=== PATIENT | female | born 2000 | race African-American/Black ===

== ENCOUNTER 2024-03-09 21:14 | Emergency (ER) | payer BC, OTHER ==
--- OUTSIDE RECORDS SUMMARY | 2024-03-09 21:18 | XMS REPORT | Continuity of Care Document ---
Author Name Unknown Address [address] [place] [address] [facility] thconnect Address [address] [place] [address] Care Team Providers Care Inspector Poising Name Role Phone JENIFER HANSON Primary Care Physician Unavailab caterina [email or web address]_S Attending Clinician UnavailROSMERY Wolfe Attending Clinician Unavailable Joe Dozier DO Attending Clinician [phone] Joanna Hickman MD Attending Clinician [phone] JOANNA HICKMAN Attending Clinician Unavailable Rosmery Stratton PA-C Attending Clinician [phone] DR DOMONIQUE BROOKS Attending Clinician Unavailable [email or web address]_S Admitting Clinician DR DOMONIQUE Brooks Admitting Clinician Unavailable Payers Payer Name Policy Type Policy Number Effective Date Expirati on Date Source [facility] [id number] 2018 00:00:00 Problems Condition Name Condition Details Condition Category Status Onset Date Resolution Date Last Treatment Date Treating Clinician Comments Source Nexplanon in place Nexplanon in place Disease Active 2019-02 00:00: 00 [facility] Morbid obesity with body mass index of 40.0-49.9 Morbid obesity with body mass index of 40.0-49.9 Disease Active 2019-02 00:00: 00 [facility] Allergies, Adverse Reactions, Alerts Allergy Name Allergy Type Status Severity Reaction(s) Onset Date Inactive Date Treating Clinician Comments Source NO KNOWN ALLERGIE S Drug Class Active [facility] Social History Social Habit Start Date Stop Date Quantity Comments Source Exposure to SARS-CoV-2 (event) Not sure [facility] Tobacco use and exposure 2019-12-12 00:00:00 2019-12-12 00:00:00 Never used [facility] Alcohol intake 2019-12-12 00:00:00 2019-12-12 00:00:00 Ex-drinker (finding) [facility] Sex Assigned At 2000 00:00:00 2000 00:00:00 [facility] Smoking Status Start Date Stop Date Source Never smoker [facility] Medications Ordered Medication Name Filled Medication Name Start Date Stop Date Current Medication? Ordering Clinician Indication Dosage Frequency Signature (SIG) Comments Components Source etonogestre L (NEXPLANON) implant 68 mg 2019-02 21:30: 00 12-11 20:30 :00 No 68mg [facility] No known medications No Un kennedy [facility] No known medications No Un kennedy [facility] Vital Signs Vital Name Observation Time Observation Value Comments S ource Systolic blood pressure 2019-12-12 19:50:00 122 mm[Hg] [facility] Diastolic blood pressure 2019-12-12 19:50:00 84 mm[Hg] [facility] Heart rate 2019-12-12 19:50:00 84 /min Unive [facility] Body temperature 2019-12-12 19:50:00 36.89 Rupa [facility] Respiratory rate 2019-12-12 19:50:00 18 /min [facility] Body height 2019-12-12 19:50:00 172.7 cm [facility] Body weight 2019-12-12 19:50:00 141.976 kg [facility] BMI 2019-12-12 19:50:00 47.59 kg/m2 [facility] Systolic blood pressure 2019-11-14 19:21:00 110 mm[Hg] [facility] Diastolic blood pressure 2019-11-14 19:21:00 71 mm[Hg] [facility] Heart rate 2019-11-14 19:21:00 87 /min Unive [facility] Body temperature 2019-11-14 19:21:00 37.28 Rupa [facility] Respiratory rate 2019-11-14 19:21:00 18 /min [facility] Body height 2019-11-14 19:21:00 172.7 cm [facility] Body weight 2019-11-14 19:21:00 139.436 kg [facility] BMI 2019-11-14 19:21:00 46.74 kg/m2 [facility] Procedures Procedure Date / Time Performed Performing Clinicia n Source POCT TEST 2019-12-12 00:00:00 Joanna Hickman [facility] Encounters Start Date/Time End Date/Time Encounter Type Admission Type Attending [facility] Facility Care Department Encounter ID Source 2022-12-04 00:00:00 2022-12-04 00:00:00 Outpatient [email or web address]_Ka diyala_S [facility] [id number] [facility] 2020-12-17 14:00:00 2020-12-17 14:00:00 Outpatient R ROSMERY STRATTON [facility] [id number] [facility] 2020-04-28 00:00:00 2020-04-28 00:00:00 Patient Outreach Joe Dozier [facility] [id number] [facility] 2019-12-12 13:29:44 2019-12-12 14:22:01 Office Visit Joanna Hickman [facility] [id number] [facility] 2019-12-12 13:30:00 2019-12-12 13:30:00 Outpatient R JOANNA HICKMAN [facility] [id number] [facility] 2019-11-19 11:15:00 2019-11-19 11:15:00 Outpatient R JOANNA HICKMAN [facility] [id number] [facility] 2019-11-14 13:58:19 2019-11-14 14:50:14 Office Visit Rosmery Stratton [facility] [id number] [facility] 2019-11-14 14:00:00 2019-11-14 14:00:00 Outpatient ROSMERY SEQUEIRA [facility] [id number] [facility] 2017-11-03 05:45:00 2017-11-03 07:55:00 Outpatient DOMONIQUE CHIANG [facility] [id number] [facility] Results Test Description Test Time Test Comments Results Result Co mments [id number]00* Test Item Value Reference Range Interpretation Comme nts POCT PREG (test code = 1605) Negative On board controls acceptable with C Line (test code = 3574) Yes POCT PREG LOT # (test code = 3575) POCT PREG TEST DATE ( test code = 3576) [facility]-11-03 07:09:00* Test Item Value Reference Range Interpretation Comme nts PREG UR (test code = PGU) NEGATIVE NEGATIVE
[2024-03-09] MEDS ORDERED: IPRATROPIUM BROM 0.5MG/2.5ML ONE (21:32)
[2024-03-09] MEDS ORDERED: ALBUTEROL 2.5 MG/3 ML NEB SOL ONE (21:32)
[2024-03-09] MEDS ORDERED: LORazepam 2 MG/ML VIAL ONE (21:46)
[2024-03-09] MEDS ORDERED: METHYLPREDNISOLONE 125 MG INJ ONE (21:46)
[2024-03-09 22:16] LABS: PT Prothrombin Time 12.5 SECONDS (9.4-12.5); PTT, Activated Partial Thromb 31.6 SECONDS (24.3-36.9); Protime INR 1.19
[2024-03-09 22:23] LABS: ALT/SGPT 37 U/L (13-56); AST/SGOT 21 U/L (15-37); Albumin 3.3 g/dL (3.4-5.0); Albumin/Globulin Ratio 0.7 (1.1-1.8); Alkaline Phosphatase 84 U/L (45-117); Anion Gap 11.8 mEq/L (5.0-15.0); BUN Blood Urea Nitrogen 9 mg/dL (7-18); Bicarbonate 21 mEq/L (21-32); Bilirubin Direct 0.2 mg/dL (0-0.2); Bilirubin Indirect, Calculated 0.7 mg/dL (0.2-0.8); Bilirubin Total 0.9 mg/dL (0.2-1.0); Creatine Phosphokinase 224 U/L (26-192); Globulin 4.6 g/dL (2.3-3.5); Glomerular Filtration Rate 87 ml/min (=/>90); Glucose Level 97 mg/dL (74-106); Lipase 52 U/L (13-75); Magnesium 2.2 mg/dL (1.6-2.4); NT PRO-BNP 18 pg/mL (<125); Potassium 3.8 mEq/L (3.5-5.1); Protein, Total 7.9 g/dL (6.4-8.2); Sodium Level 138 mEq/L (136-145)
--- NOTE | 2024-03-09 22:23 | RAD REPORT ---
EXAMINATION: ONE VIEW CHEST XR CLINICAL INDICATION: Female, 23 years old.,CONGESTION TECHNIQUE: Frontal chest projection is submitted. Examination is limited by patient positioning and t echnique. COMPARISON: No prior exam. FINDINGS: The lungs are well inflated and clear. No pneumothorax or sizable effusion. The heart is normal in s ize. Mediastinal contours are unremarkable. IMPRESSION: No acute intrathoracic abnormalities.
[2024-03-09 22:26] LABS: Absolute Eosinophils 0.4 K/uL (0-0.5); Absolute Lymphocytes (CBC) 2.3 K/uL (0.7-4.9); Absolute Monocytes 0.4 K/uL (0.1-1.3); Absolute Neutrophil 4.6 K/uL (1.8-8.0); Basophils % 0.4 % (0-1.3); Eosinophils % 5.4 % (0-4.4); Hematocrit 44.8 % (36.0-45.0); Hemoglobin 15.5 g/dL (12.0-15.0); Lymphocytes % 29.3 % (15.3-44.8); MCH 30.8 pg (27.0-35.0); MCHC 34.5 g/dL (32.0-36.0); MCV 89.4 fL (80-100); MPV 9.2 fL (7.6-11.3); Monocytes % 5.6 % (3.3-12.3); Neutrophils % 59.3 % (41.7-73.7); Platelets 282 thou/uL (152-406); RBC Red Blood Cell Count 5.01 M/uL (3.86-4.86); Red Cell Distribution Width 14.2 % (12.1-15.2)
[2024-03-09 22:39] LABS: Troponin High Sensitivity < 3.0 pg/mL (<58.9)
[2024-03-09 23:01] LABS: SARS-CoV-2 Antigen CONTROL BLUE LINE VIS/BG OK; SARS-CoV-2 Antigen Rapid Res Negative (Negative)
--- NOTE | 2024-03-09 23:18 | ER ---
Nurse's Notes [facility] Name: Brent Negro Age: 23 yrs Sex: Female : 2000 Arrival Date: 03/09/2024 Time: 21:14 Bed 4 Private MD: Diagnosis: Acute bronchitis, unspecified Presentation: 03/09 21:14 Chief complaint: Patient states: CHEST PAIN, SHORTNESS OF BREATH, COUGH, AND DIZZINESS. ha1 21:14 Coronavirus screen: Vaccine status: Patient reports receiving the 2nd dose of the covid ha1 vaccine. Ebola Screen: No symptoms or risks identified at this time. Initial Sepsis Screen: Does the patient meet any 2 criteria? No. Patient's initial sepsis screen is negative. Does the patient have a suspected source of infection? No. Patient's initial sepsis screen is negative. Risk Assessment: Do you want to hurt yourself or someone else? Patient reports no desire to harm self or others. Onset of symptoms was March 09, 2024. 21:14 Method Of Arrival: Wheelchair ha1 21:14 Acuity: NADINE 2 ha1 Triage Assessment: 21:15 General: Appears uncomfortable, Behavior is calm, cooperative. Pain: Complains of pain ha1 in chest Pain currently is 7 out of 10 on a pain scale. Quality of pain is described as pressure. Neuro: Level of Consciousness is awake, alert, obeys commands, Oriented to person, place, time, situation. Cardiovascular: Capillary refill < 3 seconds Patient's skin is warm and dry. Respiratory: Reports shortness of breath at rest Onset: The symptoms/episode began/occurred gradually, the patient has moderate shortness of breath. Respiratory: Reports cough that is productive, persistent. GI: Abdomen is round non-distended, obese. TANNER ROTARY DRUM CONTINUOUS PROCESS: 23:08 LMP N/A - control method, Not bm8 Historical: - Allergies: 21:15 No Known Allergies; ha1 - PMHx: 21:15 None; ha1 - Immunization history:: Adult Immunizations up to date. - Infectious Disease History:: Denies. - Social history:: Smoking status: . Screenin:21 [facility] ED Fall Risk Assessment (Adult) History of falling in the last 3 months, bm8 including since admission No falls in past 3 months (0 pts) Confusion or Disorientation No (0 pts) Intoxicated or Sedated No (0 pts) Impaired Gait No (0 pts) Mobility Assist Device Used No (0 pt) Altered Elimination No (0 pt) Score/Fall Risk Level 0 - 2 = Low Risk Oriented to surroundings, Maintained a safe environment, Educated pt \T\ family on fall prevention, incl call for assistance when getting out of bed, Assessed \T\ reinforced patient's understanding of fall precautions, Hourly rounding (assess needs \T\ fall precautionary measures) done, Used ambulatory aids as needed (educated on \T\ assisted with), Used gait belt as appropriate. Abuse screen: Denies threats or abuse. Nutritional screening: No deficits noted. Tuberculosis screening: No symptoms or risk factors identified. Assessment: 22:21 Reassessment: Patient appears in no apparent distress at this time. Patient and/or bm8 family updated on plan of care and expected duration. Pain level reassessed. Patient is alert, oriented x 3, equal unlabored respirations, skin warm/dry/pink. Patient states feeling better. Patient states symptoms have improved. General: Appears in no apparent distress. comfortable, Behavior is calm, cooperative, appropriate for age. Pain: Complains of pain in chest. Neuro: No deficits noted. Level of Consciousness is awake, alert, obeys commands, Oriented to person, place, time, situation, Appropriate for age. Cardiovascular: Reports chest pain, Heart tones S1 S2 present Rhythm is sinus tachycardia. Respiratory: Reports shortness of breath cough that is productive, pain with cough Airway is patent Trachea midline Respiratory effort is even, unlabored, Respiratory pattern is regular, symmetrical, Breath sounds are coarse bilaterally. GI: No signs and/or symptoms were reported involving the gastrointestinal system. : No signs and/or symptoms were reported regarding the genitourinary system. EENT: No signs and/or symptoms were reported regarding the EENT system. Derm: No signs and/or symptoms reported regarding the dermatologic system. Musculoskeletal: No signs and/or symptoms reported regarding the musculoskeletal system. 23:25 Reassessment: Patient appears in no apparent distress at this time. Patient and/or bm8 family updated on plan of care and expected duration. Pain level reassessed. Patient is alert, oriented x 3, equal unlabored respirations, skin warm/dry/pink. Patient denies pain at this time. Patient states feeling better. Patient states symptoms have improved. 23:25 Respiratory: Airway is patent Trachea midline Respiratory effort is even, unlabored, bm8 Respiratory pattern is regular, symmetrical, Breath sounds are diminished bilaterally. Vital Signs: 21:14 BP 144 / 90; Pulse 133; Resp 20 S; Temp 98.7(O); Pulse Ox 95% on R/A; Weight 165 kg; ha1 Height 5 ft. 9 in. ; Pain 7/10; 22:21 BP 132 / 100; Pulse 137; Resp 20; Temp 98.7; Pulse Ox 90% ; Pain 4/10; bm8 23:25 BP 118 / 76; Pulse 110; Resp 19; Temp 98.7; Pulse Ox 96% ; Pain 0/10; bm8 21:14 Body Mass Index 53.72 (165.00 kg, 175.26 cm) ha1 21:14 Pain Scale: Adult ha1 22:21 Pain Scale: Adult bm8 23:25 Pain Scale: Adult bm8 Lynne Coma Score: 22:21 Eye Response: spontaneous(4). Motor Response: obeys commands(6). Verbal Response: bm8 oriented(5). Total: 15. 23:25 Eye Response: spontaneous(4). Motor Response: obeys commands(6). Verbal Response: bm8 oriented(5). Total: 15. ED Course: 21:16 Patient arrived in ED. gm2 21:19 Mekhi Espinosa FNP-C [facility]. dr5 21:19 Celestino Sullivan MD is Attending Physician. dr5 21:30 Triage completed. ha1 21:35 Initial lab(s) drawn, by nc, sent to lab. First set of blood cultures drawn by nc, EKG bm8 done, by ED staff, reviewed by Mekhi CHRISTINE COVID swab sent to lab. Flu and/or RSV swab sent to lab. X-ray(s) taken. sputum culture. Inserted saline lock: 20 gauge in right forearm, using aseptic technique. Blood collected. Flushed with 10 mL NS. Oxygen administration via nasal cannula \T\ 2L/min Response to oxygen therapy: symptoms improved. 21:44 Sunil Doss, RN is Primary Nurse. bm8 21:50 Second set of blood cultures drawn by me. bm8 22:19 XRAY CXR (1 view) In Process Unspecified. EDMS 22:21 Patient has correct armband on for positive identification. Bed in low position. Call bm8 light in reach. Side rails up X2. Adult w/ patient. Client placed on continuous cardiac and pulse oximetry monitoring. NIBP monitoring applied. monitor car operator on. Pulse ox on. NIBP on. Door closed. Noise minimized. Warm blanket given. Pillow given. Verbal reassurance given. Head of bed elevated. 22:21 No provider procedures requiring assistance completed. bm8 23:25 Provided Education on: POST ER CARE. bm8 23:25 IV discontinued, intact, bleeding controlled, No redness/swelling at site. Pressure bm8 dressing applied. 23:27 Arm band placed on right wrist. bm8 Administered Medications: 21:53 Drug: DuoNeb Nebulize (3:1) (2.5 mg - 0.5 mg) 6 ml Nebulizer once Route: Nebulizer; dd2 22:26 Follow up: Response: No adverse reaction bm8 21:56 Drug: MethylPrednisoLONE IVP 125 mg IVP once Route: IVP; Site: right forearm; bm8 22:26 Follow up: Response: No adverse reaction bm8 21:56 Drug: Ativan IVP 0.5 mg IVP once Route: IVP; Site: right forearm; bm8 22:26 Follow up: Response: No adverse reaction bm8 Medication: 22:21 VIS not applicable for this client. bm8 Outcome: 23:18 Discharge ordered by . dr5 23:25 Discharged to home ambulatory, with family, bm8 23:25 Condition: stable 23:25 Discharge instructions given to patient, family, Instructed on discharge instructions, follow up and referral plans. no drinking with medication, no driving heavy equipment, medication usage, safety practices, Demonstrated understanding of instructions, follow-up care, medications, Prescriptions given X 4, 23:27 Patient left the ED. bm8 Signatures: Dispatcher [employer] EDMA Renetta Rolle, RN RN Isis Ying 2 Sunil Doss RN RN bm8 GABBI GARCIA RN RN dd2 Mekhi Espinosa, RETAIL RESET MERCHANDISER-C RETAIL RESET MERCHANDISER-Cdr5
--- NOTE | 2024-03-09 23:18 | EDPHYS ---
Physician Documentation [facility] Name: Brent Negro Age: 23 yrs Sex: Female : 2000 Arrival Date: 03/09/2024 Time: 21:14 Bed 4 Private MD: ED Physician Celestino Sullivan HPI: 03/09 23:30 This 23 yrs old Black Female presents to ER via Wheelchair with complaints of Breathing dr5 Difficulty. 23:30 The patient has shortness of breath with light activity. Onset: The symptoms/episode dr5 began/occurred 3 week(s) ago. Patient is a 23-year-old female with no past medical history coming in with 3 weeks of cough, congestion, and subjective fevers at home with clear sputum. Patient reports that the shortness of breath got worse today and has been using mom's albuterol inhaler with mild relief.. CUSTOMER MANAGEMENT SPECIALIST: 23:08 LMP N/A - control method, Not bm8 Historical: - Allergies: 21:15 No Known Allergies; ha1 - PMHx: 21:15 None; ha1 - Immunization history:: Adult Immunizations up to date. - Infectious Disease History:: Denies. - Social history:: Smoking status: . ROS: 21:46 Constitutional: as per hpi dr5 23:30 Constitutional: as per hpi dr5 Exam: 21:46 Constitutional: This is a well developed, well nourished patient who is awake, alert, dr5 and in no acute distress. 23:30 Constitutional: This is a well developed, well nourished patient who is awake, alert, dr5 and in no acute distress. Head/Face: Normocephalic, atraumatic. Eyes: Pupils equal round and reactive to light, extra-ocular motions intact. Lids and lashes normal. Conjunctiva and sclera are non-icteric and not injected. Cornea within normal limits. Periorbital areas with no swelling, redness, or edema. Neck: Trachea midline, no thyromegaly or masses palpated, and no cervical lymphadenopathy. Supple, full range of motion without nuchal rigidity, or vertebral point tenderness. No Meningismus. Chest/axilla: Normal chest wall appearance and motion. Nontender with no deformity. No lesions are appreciated. Cardiovascular: Regular rate and rhythm with a normal S1 and S2. Normal PMI, no JVD. No pulse deficits. 23:30 Respiratory: mild respiratory distress is noted, Respirations: labored breathing, that is mild, asymmetrical chest movement, that is mild, accessory muscle usage, is absent, grunting, is not present, Breath sounds: wheezing: inspiratory expiratory that is moderate, is scattered, is heard diffusely, Respiratory rate: 35 on arrival 19 RR on d/c, 23:30 Abdomen/GI: Soft, non-tender, non-distended Skin: Warm, dry with normal turgor. dr5 Normal color with no rashes, no lesions, and no evidence of cellulitis. MS/ Extremity: Pulses equal, no cyanosis. Neurovascular intact. Full, normal range of motion. Neuro: Awake and alert, GCS 15, oriented to person, place, time, and situation. Cranial nerves II-XII grossly intact. Motor strength 5/5 in all extremities. Sensory grossly intact. Cerebellar exam normal. Normal gait. Vital Signs: 21:14 BP 144 / 90; Pulse 133; Resp 20 S; Temp 98.7(O); Pulse Ox 95% on R/A; Weight 165 kg; ha1 Height 5 ft. 9 in. ; Pain 7/10; 22:21 BP 132 / 100; Pulse 137; Resp 20; Temp 98.7; Pulse Ox 90% ; Pain 4/10; bm8 23:25 BP 118 / 76; Pulse 110; Resp 19; Temp 98.7; Pulse Ox 96% ; Pain 0/10; bm8 21:14 Body Mass Index 53.72 (165.00 kg, 175.26 cm) ha1 21:14 Pain Scale: Adult ha1 22:21 Pain Scale: Adult bm8 23:25 Pain Scale: Adult bm8 Lynne Coma Score: 22:21 Eye Response: spontaneous(4). Motor Response: obeys commands(6). Verbal Response: bm8 oriented(5). Total: 15. 23:25 Eye Response: spontaneous(4). Motor Response: obeys commands(6). Verbal Response: bm8 oriented(5). Total: 15. MDM: 21:20 Medical Screening Exam initiated dr5 23:30 Differential diagnosis: asthma, Bronchitis pneumonia. Antibiotic administration: The dr5 patient is discharged and will get outpatient antibiotics, Zithromax. Data reviewed: vital signs, nurses notes. I considered the following discharge prescriptions or medication management in the emergency department Medications were administered in the Emergency Department. See MAR. Historians other than the Patient: Parent: Mother. Care significantly affected by the following Social Determinants of Health: Poor access to healthcare and/or lack of insurance, Poor access to transportation, Problems related to employment. Counseling: I had a detailed discussion with the patient and/or guardian regarding the historical points, exam findings, and any diagnostic results supporting the discharge/admit diagnosis, the presence of at least one elevated blood pressure reading (>120/80) during this emergency department visit, lab results, radiology results, the need for outpatient follow up, for definitive care, a family practitioner, a windows infrastructure engineer, to return to the emergency department if symptoms worsen or persist or if there are any questions or concerns that arise at home. Medication response: Response to treatment: the patient's symptoms have resolved after treatment. ED course: Patient is well-appearing and looks much better after albuterol inhaler given and steroids. Will send patient home with steroids, antibiotics, cough medication, and inhaler to use as needed. All questions answered. Will have patient follow-up with primary care doctor as needed. Increase hydration and alternate Tylenol Motrin as needed for pain and fever.. 03/09 21:29 Order name: BMP; Complete Time: 22:41 [facility] 03/09 21:29 Order name: Blood Culture Adult (2) dr5 03/09 21:29 Order name: CBC with Diff; Complete Time: 22:36 [facility] 03/09 21:29 Order name: CPK; Complete Time: 22:41 [facility] 03/09 21:29 Order name: Hepatic Function; Complete Time: 22:41 [facility] 03/09 21:29 Order name: Lipase; Complete Time: 22:41 [facility] 03/09 21:29 Order name: Magnesium; Complete Time: 22:41 [facility] 03/09 21:29 Order name: NT PRO-BNP; Complete Time: 22:41 [facility] 03/09 21:29 Order name: PT-INR; Complete Time: 22:21 [facility] 03/09 21:29 Order name: Ptt, Activated; Complete Time: 22:21 [facility] 03/09 21:29 Order name: Troponin HS; Complete Time: 22:41 [facility] 03/09 21:29 Order name: Lactate w/ 2H reflex if indic.; Complete Time: 22:36 [facility] 03/09 21:34 Order name: SARS RAPID; Complete Time: 23:06 dr5 03/09 21:34 Order name: Influenza Screen (a \T\ B); Complete Time: 23:06 dr5 03/09 21:41 Order name: Test, Serum; Complete Time: 22:50 bm8 03/09 21:54 Order name: Sputum Culture dr5 03/09 21:29 Order name: XRAY CXR (1 view); Complete Time: 22:36 dr5 03/09 21:29 Order name: Cardiac monitoring; Complete Time: 21:56 dr5 03/09 21:29 Order name: EKG - Nurse/Tech; Complete Time: :56 dr5 03/09 21:29 Order name: IV Saline Lock; Complete Time: :56 dr5 03/09 21:29 Order name: Labs collected and sent; Complete Time: :56 dr5 03/09 21:29 Order name: O2 Per Protocol; Complete Time: :56 dr5 03/09 21:29 Order name: O2 Sat Monitoring; Complete Time: 21:56 dr5 EC:36 Rate is 117 beats/min. Rhythm is regular. QRS [place] is Normal. OH interval is normal at dr5 114 msec. QRS interval is normal at 82 msec. QT interval is normal at 314 msec. Administered Medications: 21:53 Drug: DuoNeb Nebulize (3:1) (2.5 mg - 0.5 mg) 6 ml Nebulizer once Route: Nebulizer; dd2 22:26 Follow up: Response: No adverse reaction bm8 21:56 Drug: MethylPrednisoLONE IVP 125 mg IVP once Route: IVP; Site: right forearm; bm8 22:26 Follow up: Response: No adverse reaction bm8 21:56 Drug: Ativan IVP 0.5 mg IVP once Route: IVP; Site: right forearm; bm8 22:26 Follow up: Response: No adverse reaction bm8 Disposition: 03/10 02:36 Co-signature as Attending Physician, Celestino Sullivan MD I agree with the assessment sp4 and plan of care. I reviewed the patient's care provided by the Advanced Practice Provider and agree with the diagnosis and treatment plan. Disposition Summary: 03/09/24 23:18 Discharge Ordered Notes: Location: Home dr5 Condition: Stable dr5 Diagnosis - Acute bronchitis, unspecified dr5 Followup: dr5 - With: Emergency Department - When: As needed - Reason: Worsening of condition Followup: dr5 - With: Private Physician - When: 1 - 2 days - Reason: Recheck today's complaints, Continuance of care, Re-evaluation by your physician Discharge Instructions: - Discharge Summary Sheet dr5 - Acute Bronchitis, Adult dr5 Forms: - Medication Reconciliation Form dr5 - Antibiotic Education dr5 - Prescription Opioid Use dr5 - Patient Portal Instructions dr5 - Leadership Thank You Letter dr5 Prescriptions: - albuterol sulfate 90 mcg/actuation Inhalation HFA Aerosol Inhaler - inhale 2 inhalation INHALATION route every 4 hours; 1 application; Refills: 0, dr5 Product Selection Permitted - azithromycin 500 mg Oral tablet - take 1 dose pack ORAL route as directed on dose pack For 250 mg dose pack: take dr5 500 mg today (day 1), then 250 mg for 4 days (days 2-5); 1 Pack; Refills: 0, Product Selection Permitted - Medrol (Gurmeet) 4 mg Oral Tablets, Dose Pack - take 1 tablet ORAL route as directed - follow package instructions; 1 packet; dr5 Refills: 0, Product Selection Permitted - Guaifenesin AC 10-100 mg/5 mL Oral Liquid - take 10 milliliters ORAL route every 4 hours As needed; 240 milliliter; dr5 Refills: 0, Product Selection Permitted Signatures: Dispatcher [employer] EDMS Renetta Rolle, RN RN ha1 Celestino Sullivan MD MD sp4 Sunil Doss RN RN bm8 GABBI GARCIA RN RN dd2 Mekhi Espinosa, WINDOWS SERVER ENGINEER-C WINDOWS SERVER ENGINEER-Cdr5 Corrections: (The following items were deleted from the chart) 03/09 21:30 21:30 BASIC METABOLIC PANEL+C.LAB.BRZ ordered. EDMS EDMS 21:30 21:30 BLOOD CULTURE*+BA.LAB.BRZ ordered. EDMS EDMS 21:30 21:30 CBC+H.LAB.BRZ ordered. EDMS EDMS 21:30 21:30 CREATINE PHOSPHOKINASE+C.LAB.BRZ ordered. EDMS EDMS 21:30 21:30 HEPATIC FUNCTION+C.LAB.BRZ ordered. EDMS EDMS 21:30 21:30 LIPASE+C.LAB.BRZ ordered. EDMS EDMS 21:30 21:30 MAGNESIUM+C.LAB.BRZ ordered. EDMS EDMS 21:30 21:30 PROBNP+C.LAB.BRZ ordered. EDMS EDMS 21:30 21:30 PROTIME (+INR)+COAG.LAB.BRZ ordered. EDMS EDMS 21:30 21:30 PTT, ACTIVATED+COAG.LAB.BRZ ordered. EDMS EDMS 21:30 21:30 Troponin High Sensitivity+C.LAB.BRZ ordered. EDMS EDMS 21:30 21:30 LACTATE+C.LAB.BRZ ordered. EDMS EDMS 21:30 21:30 Chest Single View+RAD.RAD.BRZ ordered. EDMS EDMS 21:35 21:34 SARS-COV-2 Antigen Rapid+I.LAB.BRZ ordered. EDMS EDMS 21:35 21:34 Influenza Screen (A \T\ B)+BA.LAB.BRZ ordered. EDMS EDMS
[2024-03-09 23:53] VITALS: TEMP 98.7
[2024-03-09 23:56] VITALS: BP 118/76; O2SAT 96
== END 2024-03-09 23:27 | disposition home or self-care (01) ==
LOC: ER 21:14
DX: J20.9 Acute bronchitis, unspecified (principal); Z11.52 Encounter for screening for COVID-19
CPT/HCPCS: 87040 ×2; 87070; 85025; 80048; 36415; 83735; 82550; 87205; 84703; 85610; 80076; 83605; 85730; 84484; 83690; 83880; 87804 ×2; 71045; 96375; 96374; 99285; 87811; J7613; J7644; J2919; 93005